=== PATIENT | female | born 1995 | race Caucasian/White ===

== ENCOUNTER 2016-10-27 20:53 | Inpatient (IN) | payer OTHER ==
[~2016-10-27] VITALS: Ht 162.6 cm; Wt 69.4 kg
[2016-10-27 22:07] LABS: BASO % 0.4 %; BASO ABS # 0.04 K/uL (0-0.2); COMPLETE YES; EOS % 3.2 %; HEMATOCRIT 43.4 % (37-47); IG% 0.1 %; LYMPH % 33.6 %; LYMPH ABS # 3.35 K/uL (1.2-3.4); MEAN CELL VOLUME 85.3 fL (80-100); MEAN CORPUSCULAR HGB CONC 36.4 g/dl (32-36); MEAN PLATELET VOLUME 11.4 fL (7.4-10.4); NEUT % 54.7 %; PLATELET COUNT 202 K/uL (130-400); RED BLOOD COUNT 5.09 M/uL (4.2-5.4); WHITE BLOOD COUNT 9.98 K/uL (4.8-10.8)
--- NOTE | 2016-10-27 22:08 | EMERGENCY ROOM VISIT NOTE ---
History Report prepared by Justin: Angélica Spicer Under the Supervision of: Dr. Pawan Rubio M.D. First contact with patient: 21:38 Chief Complaint: MENTAL HEALTH EVALUATION Stated Complaint: BEHAVIORAL HEALTH ISSUES History of Present Illness The patient is a 21 year old female who presents to the Emergency Room with complaints of worsening depression starting a few weeks TIER OVER. The patient states that she has a mental health history of depression and anxiety. The patient states that lately she has been feelings that she is diminished, does not exist and feeling of guilt. The patient states that recently she has experienced a lot of stressor. She states her grandmother in June and other stressors included politics, withdrawing from [facility] and financial troubles. The patient states that she use to take Effexor but due to side effects she stopped taking the medication about 1 year ago. The patient states she does not see anyone for her depression. She states that she does feel like she wants to hurt herself and has thoughts of suicide but states she has never attempted suicide in the past .The patient states that her thoughts of suicide also cause her to feel more guilty and stress. The patient states that she has been having night sweats. She states that she only eats about 1 meal a day and sleeps 5 hours a night. The patient denies any chance of and states she took a test last week due to her irregular menstrual periods. Source of History: patient Onset: few weeks TIER OVER Position: other (global) Timing: worsening Note: Associated symptoms: night sweats, anxiety. Review of Systems See HPI for pertinent positives & negatives. A total of 10 systems reviewed and were otherwise negative. Past Medical & Surgical Medical Problems: (1) Anxiety (2) Depression (3) Factor 5 Leiden mutation, heterozygous (4) Hypothyroidism Family History Cancer Heart disease Hypertension Social History Smoking Status: Never Smoker Marital Status: single Housing Status: lives with roommate Occupation Status: employed Current/Historical Medications No Active Prescriptions or Reported Meds Allergies Coded Allergies: Sulfa Antibiotics (Verified Allergy, Mild, Rash, 10/27/16) Physical Exam Vital Signs Date Time Temp Pulse Resp B/P Pulse Ox O2 Delivery O2 Flow Rate FiO2 10/28/16 00:35 78 16 120/90 98 10/27/16 20:59 36.9 139 18 152/92 99 Room Air Physical Exam GENERAL: Patient is a healthy-appearing well-nourished HEAD: Normocephalic atraumatic EYES: Ocular movements intact pupils equal and react to light OROPHARYNX mucous membranes are moist no exudates present no erythema or edema present NECK: Supple no nuchal rigidity CHEST: Good equal expansion LUNGS: Clear and equal to auscultation CARDIAC: Normal S1 and S2 ABDOMEN: Soft nontender no guarding BACK: No CVA tenderness EXTREMITIES: No pain upon palpation normal muscle strength in all groups no clubbing cyanosis or edema NEURO: Patient is following commands is answering questions appropriately. Alert and oriented x3 Cranial Nerves 2-12 grossly intact PSYCH: Medical Decision & Procedures Laboratory Results 10/27/16 21:56 Red Blood Count 5.09, Mean Corpuscular Volume 85.3, Mean Corpuscular Hemoglobin 31.0, Mean Corpuscular Hemoglobin Concent 36.4, Mean Platelet Volume 11.4, Neutrophils (%) (Auto) 54.7, Lymphocytes (%) (Auto) 33.6, Monocytes (%) (Auto) 8.0, Eosinophils (%) (Auto) 3.2, Basophils (%) (Auto) 0.4, Neutrophils # (Auto) 5.46, Lymphocytes # (Auto) 3.35, Monocytes # (Auto) 0.80, Eosinophils # (Auto) 0.32, Basophils # (Auto) 0.04 10/27/16 21:56 Test 10/27/16 21:30 10/27/16 21:56 Urine Color YELLOW Urine Appearance TURBID (CLEAR) Urine pH 7.5 (4.5-7.5) Urine Specific [place] 1.022 (1.000-1.030) Urine Protein NEG (NEG) Urine Glucose (UA) NEG (NEG) Urine Ketones NEG (NEG) Urine Occult Blood NEG (NEG) Urine Nitrite NEG (NEG) Urine Bilirubin NEG (NEG) Urine Urobilinogen NEG (NEG) Urine Leukocyte Esterase SMALL (NEG) Urine WBC (Auto) 10-30 /hpf (0-5) Urine RBC (Auto) 0-4 /hpf (0-4) Urine Hyaline Casts (Auto) 0 /lpf (0-5) Urine Epithelial Cells (Auto) >30 /lpf (0-5) Urine Bacteria (Auto) 4+ (NEG) Urine Pathogenic Casts /lpf (0) Urine Test NEG (NEG) Urine Opiates Screen NEG (NEG) Urine Methadone, Qualitative NEG (NEG) Urine Barbiturates NEG (NEG) Urine Phencyclidine (PCP) Level NEG (NEG) Ur Amphetamine/Methamphetamine NEG (NEG) MDMA (Ecstasy) Screen NEG (NEG) Urine Benzodiazepines Screen NEG (NEG) Urine Cocaine Metabolite NEG (NEG) Urine Marijuana (THC) POS (NEG) White Blood Count 9.98 K/uL (4.8-10.8) Red Blood Count 5.09 M/uL (4.2-5.4) Hemoglobin 15.8 g/dL (12.0-16.0) Hematocrit 43.4 % (37-47) Mean Corpuscular Volume 85.3 fL (80-100) Mean Corpuscular Hemoglobin 31.0 pg (25-34) Mean Corpuscular Hemoglobin Concent 36.4 g/dl (32-36) Platelet Count 202 K/uL (130-400) Mean Platelet Volume 11.4 fL (7.4-10.4) Neutrophils (%) (Auto) 54.7 % Lymphocytes (%) (Auto) 33.6 % Monocytes (%) (Auto) 8.0 % Eosinophils (%) (Auto) 3.2 % Basophils (%) (Auto) 0.4 % Neutrophils # (Auto) 5.46 K/uL (1.4-6.5) Lymphocytes # (Auto) 3.35 K/uL (1.2-3.4) Monocytes # (Auto) 0.80 K/uL (0.11-0.59) Eosinophils # (Auto) 0.32 K/uL (0-0.5) Basophils # (Auto) 0.04 K/uL (0-0.2) RDW Standard Deviation 40.5 fL (36.4-46.3) RDW Coefficient of Variation 12.8 % (11.5-14.5) Immature Granulocyte % (Auto) 0.1 % Immature Granulocyte # (Auto) 0.01 K/uL (0.00-0.02) Anion Gap 9.0 mmol/L (3-11) Est Creatinine Clear Calc Drug Dose 107.8 ml/min Estimated GFR () 124.0 Estimated GFR (Non- 107.0 BUN/Creatinine Ratio 12.9 (10-20) Calcium Level 9.2 mg/dl (8.5-10.1) Total Bilirubin 0.3 mg/dl (0.2-1) Direct Bilirubin < 0.1 mg/dl (0-0.2) Aspartate Amino Transf (AST/SGOT) 15 U/L (15-37) Alanine Aminotransferase (ALT/SGPT) 23 U/L (12-78) Alkaline Phosphatase 68 U/L (45-117) Total Protein 7.4 gm/dl (6.4-8.2) Albumin 4.0 gm/dl (3.4-5.0) Thyroid Stimulating Hormone (TSH) 9.800 uIu/ml (0.300-4.500) Ethyl Alcohol mg/dL < 3.0 mg/dl (0-3) Labs reviewed by ED physician. Medications Administered Medications (Trade) Dose Ordered Sig/Gaston Route Start Time Stop Time Status Last Admin Dose Admin Nitrofurantoin Macrocrystals (Macrobid Cap) 100 mg ONE STAT PO 10/27/16 22:35 10/27/16 22:36 DC 10/27/16 23:01 100 MG ED Course 2149: Past medical records reviewed. The patient was evaluated in room A7. A complete history and physical examination was performed. 2208: The patient has been medically clear for further mental health evaluation. 2225:The housing case manager informed me that he will contact [address] [place] [address] to come evaluate the patient. 2231: [facility] will be down to evaluate the patient. Medical Decision Differential diagnosis: Etiologies such as mood disorder, infection, hypoglycemia, electrolyte abnormalities, cardiac sources, intracerebral event, toxicologic, neurologic, as well as others were entertained. This is a 21-year-old female who presents emergency department complaining of depression that has been worsening over the past several months this is out of her grandmother. I will note that the patient's TSH is elevated however she can follow this up with her primary care physician. She was given Macrobid for what appears to be a UTI. She is not and admits to a history of irregular periods. I did discuss the case with case management as well as [facility] liaison who agreed to admit the patient. Patient was in agreement with the treatment plan. She was further evaluated and admitted to [facility]. Impression Primary Impression: Mood disorder Scribe Attestation The scribe's documentation has been prepared under my direction and personally reviewed by me in its entirety. I confirm that the note above accurately reflects all work, treatment, procedures, and medical decision making performed by me. Departure Information Dispostion Home / Self-Care Prescriptions No Active Prescriptions or Reported Meds Forms HOME CARE DOCUMENTATION FORM, IMPORTANT VISIT INFORMATION Patient Instructions [facility]
[2016-10-27 22:20] LABS: URINE APPEARANCE TURBID (CLEAR); URINE BILIRUBIN NEG (NEG); URINE COLOR YELLOW; URINE EPITHELIAL CELL AUTO >30 /lpf (0-5); URINE NITRITE NEG (NEG); URINE PH 7.5 (4.5-7.5); URINE SPECIFIC GRAVITY 1.022 (1.000-1.030); UROBILINOGEN NEG (NEG)
[2016-10-27 22:23] LABS: ALT/SGPT 23 U/L (12-78); BLOOD UREA NITROGEN 10 mg/dl (7-18); BUN/CREATININE RATIO 12.9 (10-20); CALCIUM 9.2 mg/dl (8.5-10.1); CARBON DIOXIDE 24 mmol/L (21-32); CHLORIDE 107 mmol/L (98-107); CREATININE 0.79 mg/dl (0.60-1.20); GLUCOSE 94 mg/dl (70-99); POTASSIUM 3.7 mmol/L (3.5-5.1); SODIUM 140 mmol/L (136-145)
[2016-10-27 22:23] LABS: MANUAL MICROSCOPIC REQUIRED? NO; REVIEW REQ? YES
[2016-10-27 22:24] LABS: BENZODIAZEPINE, URINE NEG (NEG); COCAINE,URINE NEG (NEG); PHENCYCLIDINE, URINE NEG (NEG)
[2016-10-27 22:33] LABS: ALKALINE PHOSPHATASE 68 U/L (45-117); AST/SGOT 15 U/L (15-37)
[2016-10-27 22:33] LABS: PREG INTERNAL NEGATIVE QC NEG CLEAR BACKGROUND; PREG INTERNAL POSITIVE QC POS CONTROL LINE
[2016-10-27] MEDS ORDERED: NITROFURANTOIN MONOHYDRATE 100 MG CAP PO STA (22:35)
[2016-10-28] MEDS ORDERED: ACETAMINOPHEN 325 MG TAB PO PRN (00:30)
[2016-10-28] MEDS ORDERED: BISMUTH SUBSALICYLATE PER ML OMNICELL CHARGE PO PRN (00:30)
[2016-10-28] MEDS ORDERED: SODIUM CHLORIDE 0.65% NA SOLN 45 ML (OCEAN) PRN (00:30)
[2016-10-28] MEDS ORDERED: MAGNESIUM HYDROXIDE SUSP 30 ML UDC PO PRN (00:30)
[2016-10-28] MEDS ORDERED: ALUMINUM/MAGNESIUM SUSP 30 ML UDC PO PRN (00:30)
[2016-10-28] MEDS ORDERED: hydrOXYzine HCL 25 MG TAB PO PRN ×2 (00:30)
[2016-10-28] MEDS ORDERED: NURSING VERBAL MED ORDER ONE (00:30)
[2016-10-28 00:35] VITALS: O2SAT 98
[2016-10-28 00:53] VITALS: BP 120/90; PULSE 84; TEMP 36.9; Ht 162.6 cm; Wt 69.4 kg
[2016-10-28 06:53] VITALS: BP_SYST 121; BP_SYST 138; BP_DIAS 78; BP_DIAS 82; PULSE 76; PULSE 85; TEMP 36.3
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
[2016-10-28] MEDS: ESCITALOPRAM OXALATE 10 MG TAB PO SCH (21:22)
[2016-10-29 06:21] VITALS: BP_SYST 119; BP_SYST 135; BP_DIAS 106; BP_DIAS 87; PULSE 106; PULSE 72; TEMP 36.9
--- NOTE | 2016-10-29 11:35 | Psychiatric Progress Notes ---
Progress Note Date of Service Oct 29, 2016. Interval History Anamaria Samuel is a 21-year-old female who currently lives in [place] alone, has a history of depression and hypothyroidism, neither of which are currently treated, and presented to the emergency room with worsening mood and suicidality. She was admitted voluntarily. Chief Complaint "Okay, just sleep". Subjective Patient was seen & assessed interval progress reviewed with nursing. Staff report she is going to groups and participating appropriately. She had a meeting with her boyfriend yesterday, who was supportive and worried about her. She agreed that she tends to put up barriers and hide how she is feeling, and becomes overwhelmed. She discussed difficulties in her relationships with her family, and the fact that she and her boyfriend have to hide the relationship from his family. She was referred for outpatient therapy and has an appointment next week. Today, she states mood is "a bit better, but sleep wasn't so good," noting her roommate was disruptive, so she had to go to the quiet room. She feels groups and therapy have been helpful. She submitted her 72 hour notice as she wants to be able to leave in a few days as she is anxious to be back at work next week, and hopes to be ready for discharge by Wednesday. She denies SI today, and is working on coping skills and discharge safety plan. She doesn't want a family meeting as her family are in [place] now, and won't be back for another month, but thinks she would like to set up some sort of session with them and her outpatient therapist once they return. She denies suicidal thoughts today, and feels safe in the hospital. She questions why she did not get her thyroid medication this morning, as it is ordered but was not given. Sleep Information Total Hours of Sleep: 6.25 Meal Information Percent of Breakfast Consumed: 100 Percent of Lunch Consumed: 50 Percent of Dinner Consumed: 100 Mental Status Exam During interview pt is: alert and oriented, cooperative Appearance: appropriately dressed, appropriately groomed Eye contact is: good Motor behavior is: steady gait & station, no abnormal motor movements Speech: other (rapid) Affect: mood congruent, other (mildly anxious, but reactive, appropriate, and mood congruent.) Mood is: other ("better") Thought process: goal directed, linear, logical Thought content: reality based without delusions Suicidal thought are: denied Homicidal thoughts are: denied Hallucinations: denies auditory, denies visual Cognition: memory grossly intact, attention grossly intact, language grossly intact Intelligence estimated to be: consistent with level of education Insight: fair Judgement: fair Impression 21-year-old single female with a history of depression treated by her PCP who presents with worsening mood and suicidality in the context of multiple psychosocial stressors. She reports affective instability with multiple symptoms consistent with borderline personality disorder versus bipolar type II , as well as symptoms of generalized anxiety disorder, and regular cannabis use. She has never had psychiatric treatment in the past, and has had only one previous trial of Effexor for about 2 years. She is willing for medications to target mood and anxiety and for referrals for outpatient follow-up. Plan (1) Depression Differential diagnosis includes major depressive disorder versus borderline personality disorder versus bipolar type II. She was on Effexor for 2 years and did not have manic episodes during that time, and her reports of affect of instability sound more consistent with borderline personality disorder then with bipolar disorder. We will start treating her as a unipolar depression with an SSRI antidepressant, but we did review the risks of destabilizing mood or causing yvonne with an antidepressant. We reviewed the risks, benefits, and side effects of escitalopram, and will start 10 mg daily at bedtime tonight. -Attend groups and work on healthy coping skills and a discharge safety plan. -Family meeting with mother and/or other supports. -Refer for outpatient psychiatry and therapy. 10/29 -Referred to [facility], but initial appointment is not until 12/29/2016. She is on a wait list. Social work looking into other options, as she will need to be seen sooner than that after discharge from the hospital. -Referred for therapy to Gloria Gomez, and will see her 11/04/2016. (2) Generalized anxiety disorder Start escitalopram as above. Offer hydroxyzine as needed. (3) Borderline Personality Traits The patient endorses affect of instability, chronic feelings of emptiness, fears of abandonment, impulsivity, history of self-mutilation and chronic suicidality, stress-related dissociation, and difficulty controlling anger. Continue to monitor and assess, and refer for outpatient therapy. (4) Cannabis abuse The patient was educated about the risks of ongoing cannabis use, including worsening of mood, amotivation, legal problems, and potential interactions with psychotropic medications. We reviewed the recommendations to abstain from illicit substance use while addressing depression and anxiety, and she indicated a willingness to consider this. Will refer for outpatient follow-up with a psychiatrist and therapist to address mental health issues as well as substance abuse. (5) Hypothyroidism TSH high at 9.800. Was on levothyroxine 100mcg, but went off it 1.5 yrs ago as couldn't afford medication. Will resume here, and will need f/u with PCP after discharge. (6) Factor 5 Leiden mutation, heterozygous Discharge / Aftercare Planning Primary Care Physician: Name: PCP, Sabrina Linder Psychiatrist: Name: Elvi Webb PA-C, [place] Date of Appointment: Dec 29, 2016 Time of Appointment: 8:30am Appointment Notes: you are on cancellation list for earlier appt Therapist: Name: Gloria Gomez LCSW, [facility], [address] Date of Appointment: Nov 04, 2016 Time of Appointment: 9am Visit Code E&M Code: 81768 Inventory Assets Strengths: Employed, motivated for treatment Risk Factors Assessment : Yes /single/: Yes Higher / Fall in social status: No Health problems: Yes Mental Health Diagnoses: Yes Substance use disorders: Yes Previous attempt: Yes Family history of suicide: No Previous psychiatric stay: No Hopelessness: No Smoker: No Protective Factors Assessment Spiritism beliefs: No : No Responsible for young children: No Employed: Yes Stable relationships: No Supportive family: No Good rapport with provider: No Data Vital Signs Last 24 Hrs: Date Time Temp Pulse Resp B/P Pulse Ox O2 Delivery O2 Flow Rate FiO2 10/29/16 06:21 36.9 72 16 135/106 106 119/87 Meds Administered Last 24 Hrs: Meds Administered (Past 24Hrs) Medications (Trade) Dose Ordered Sig/Gaston Route Start Time Stop Time Status Last Admin Dose Admin Nitrofurantoin Macrocrystals (Macrobid Cap) 100 mg ONE STAT PO 10/27/16 22:35 10/27/16 22:36 DC 10/27/16 23:01 100 MG Escitalopram Oxalate (Lexapro Tab) 10 mg HS PO 10/28/16 22:00 11/27/16 21:59 10/28/16 21:22 10 MG Problem Qualifiers (1) Depression: Depression Type: major depressive disorder Major depression recurrence: recurrent Active/Remission status: currently active Major depression episode severity: severe Psychotic features: without psychotic features Qualified Codes: F33.2 - Major depressive disorder, recurrent severe without psychotic features
[2016-10-29] MEDS: ESCITALOPRAM OXALATE 10 MG TAB PO SCH (21:23)
[2016-10-30 06:30] VITALS: BP_SYST 139; BP_SYST 144; BP_DIAS 108; BP_DIAS 87; PULSE 77; PULSE 92; TEMP 36.9
[2016-10-30] MEDS: LEVOTHYROXINE 100 MCG TAB PO SCH ×2 (08:00→08:30)
[2016-10-30] MEDS ORDERED: SYN100 PO (10:52)
[2016-10-30] MEDS ORDERED: LXP10 PO (10:52)
--- NOTE | 2016-10-30 11:15 | Discharge Instructions ---
Discharge Information Report Includes Report will include the: Discharge Instructions & Summary Admission Admission Date / Time: Oct 28, 2016 at 00:21 Reason for Admission: Major Depression W/ Suicidality Discharge Discharge Diagnosis / Problem: Depression and anxiety Condition at Discharge: Good Discharge Goals Goal(s): Decrease discomfort, Improve disease control, Prevent Disease Progression Activity Recommendations Activity Limitations: resume your previous activity (Return to work on Wednesday) Item Value Date Time Thyroid Stimulating Hormone (TSH) 9.800 uIu/ml H 10/27/16 2156 . Instructions / Follow-Up Instructions / Follow-Up . SPECIAL CARE INSTRUCTIONS: 1. Follow through with your scheduled aftercare appointments. If unable to keep an appointment, please call to reschedule. 2. Take your medication only as prescribed. Medication should not be changed or stopped without the approval of your doctor. In the event of worsening symptoms or concerns about side effects, contact your doctor immediately. 3. Utilize new healthy coping skills, anger management skills, and stress management skills learned during your hospitalization. Journal feelings and process them with a support person. Identify stressors or situations that may result in relapse, deterioration or inappropriate behaviors and develop a plan to deal with those issues. 4. If your coping skills are ineffective and you are in crisis, contact your outpatient providers for direction. If unable to reach your providers, please call the CAN HELP LINE AT or go to the closest Emergency Room. 5. Avoid alcohol and un-prescribed drugs. 6. You have been provided with the Mental Health Advance Directives Pamphlet for your review. AFTERCARE APPOINTMENTS: * Please call your insurance company prior to your scheduled appointment to confirm your aftercare providers are covered. Take your insurance information to your appointments. . Discharge / Aftercare Planning Primary Care Physician: Name: PCP, Sabrina Sheehan Phone Number: [phone] Date of Appointment: December 02, 2016 Time of Appointment: 1020am Psychiatrist: Name: Dr Merida Date of Appointment: Nov 09, 2016 Time of Appointment: 3:00pm Appointment Notes: [address] [facility],[address] Therapist: Name Of Therapist: Gloria Gomez LCSW, [facility], [address] [place] [address] Radha Date of Appointment: Nov 04, 2016 Time of Appointment: 9am . Follow-Up Care Plan for Follow-Up Care: The patient will see both a therapist and psychiatrist within 10 days of discharge. Current Hospital Diet Patient's current hospital diet: Regular Diet Discharge Diet Recommended Diet: Regular Diet Procedures Procedures Performed: No Pending Studies Pending Studies at Discharge: No Medical Emergencies . Who to Call and When: Medical Emergencies: For questions or emergencies related to your hospital stay, please contact the Inpatient Behavioral Health Unit at [phone]. A tree expert is on-call 08/02 for the Behavioral Health Unit for emergencies At any time you feel your situation is an emergency, you may also call 911 immediately. . Non-Emergent Contact Non-Emergency issues call your: Psychiatrist, Therapist Advance Directives Existing Advance Directive: No Do You Have an Existing Mental: No Existing Living Will: No Existing Power of Student Services Director: No Advance Directives Info Given: To Pt/S.O. Advance Directives Reason: Declines as Mental Health Visit. Discharge Summary Admission HPI Per the Admitting provider: Pt states she has had worsening mood for over a year, in the context of her grandmother dying and relationship issues with family. She is from [place], [place], but had been living with her aunt and uncle in [place] (her "guardians," as she and her brother had severe fighting, so her aunt and uncle took legal guardianship of her so she could live with them, while her brother stayed with her mother). She lived with them from 7th grade through high school graduation, then came here to attend [employer]. She returned home the summer after her first year of college, and threw a democrat while her aunt and uncle were out of town, so they kicked her out. She returned to [employer] in the fall for her sophomore year, but had to withdrawal during her isiah year as she had poor grades and couldn' t afford tuition. She is now living in an apartment and is working to support herself. She says her "stress" is "causing me problems in getting back to work, haven't been able to get up and go to work in the mornings," and hasn't made it to work all 5 days in a week. 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 She has not been able to attend a full week of work since starting that job, and made an appointment with her PCP as she thought she needed her PCP to refer her to the hospital. She says "everything has been boiling in the back of my mind, and was thinking about suicide, so decided I needed to get this fixed." She reports years of suicidal thoughts, and has thought about different ways to kill herself , and thinks the best way would be to "take a handful of pills." She has gone to far as to write suicide notes last week, but decided she wanted to get help instead of acting on it. Mood is "a lot of up and down," and has days where she is "very very happy, have everything together, am doing everything right, then the next day can't get out of bed, just blank, can't do it anymore." Periods of low mood last a day to a week, during which sleep is disrupted (night sweats) and decreased to 5 hrs/night, feelings of guilt, decreased interest, and isolating more. She denies changes in appetite or weight, crying spells. Periods of elevated mood occur erratically, approximately every 2 weeks, usually last hours to 3 days, and during them is more productive, feels "real, alive, glowing," and energy improves. She will smoke more pot because "I feel so good," and will spend excessively, up to $500 in a week which is her whole paycheck. Denies racing thoughts, decreased need for sleep. She has read about borderline PD and thinks it fits her well, that she vacillates in her feelings about friends and loved ones, "goes from loving them to angry," endorses black and white thinking, chronic feelings of emptiness, fear of rejection, chronic SI , anger outbursts, and stress induced dissociation. Used to scratch herself and dig deep into skin, but denies cutting and burning. Anger outbursts once every 2 weeks, will break coat hangers up to get anger out, but denies breaking other objects or violence. Reports anxiety which has increased over the past two years , triggered by financial strain, worries as she can't make ends meet and feels she is not living up to her potential or getting anywhere in life. She has had panic with "complete breakdown, feel like I can't breathe, my mind stops, as if I'm frozen," heart races; lasting 5 min, occurs 4-5 times/year. Denies AVH, paranoia, OCD, and eating disorder. Hospital Course (1) Depression Differential diagnosis includes major depressive disorder versus borderline personality disorder versus bipolar type II. She was on Effexor for 2 years and did not have manic episodes during that time, and her reports of affect of instability sound more consistent with borderline personality disorder then with bipolar disorder. We will start treating her as a unipolar depression with an SSRI antidepressant, but we did review the risks of destabilizing mood or causing yvonne with an antidepressant. We reviewed the risks, benefits, and side effects of escitalopram, and will start 10 mg daily at bedtime tonight. -Attend groups and work on healthy coping skills and a discharge safety plan. -Family meeting with mother and/or other supports. -Refer for outpatient psychiatry and therapy. 10/29 -Referred to [facility], but initial appointment is not until 12/29/2016. She is on a wait list. Social work looking into other options, as she will need to be seen sooner than that after discharge from the hospital. -Referred for therapy to Gloria Gomez, and will see her 11/04/2016. (2) Generalized anxiety disorder Start escitalopram as above. Offer hydroxyzine as needed. (3) Borderline Personality Traits The patient endorses affect of instability, chronic feelings of emptiness, fears of abandonment, impulsivity, history of self-mutilation and chronic suicidality, stress-related dissociation, and difficulty controlling anger. Continue to monitor and assess, and refer for outpatient therapy. (4) Cannabis abuse The patient was educated about the risks of ongoing cannabis use, including worsening of mood, amotivation, legal problems, and potential interactions with psychotropic medications. We reviewed the recommendations to abstain from illicit substance use while addressing depression and anxiety, and she indicated a willingness to consider this. Will refer for outpatient follow-up with a psychiatrist and therapist to address mental health issues as well as substance abuse. (5) Hypothyroidism TSH high at 9.800. Was on levothyroxine 100mcg, but went off it 1.5 yrs ago as couldn't afford medication. Will resume here, and will need f/u with PCP after discharge. (6) Factor 5 Leiden mutation, heterozygous Risk Factors Assessment : Yes /single/: Yes Higher / Fall in social status: No Health problems: Yes Mental Health Diagnoses: Yes Substance use disorders: Yes Previous attempt: Yes Family history of suicide: No Previous psychiatric stay: No Hopelessness: No Smoker: No Protective Factors Assessment Presybeterian beliefs: No : No Responsible for young children: No Employed: Yes Stable relationships: No Supportive family: No Good rapport with provider: No Day of Discharge Assessment COURSE OF HOSPITALIZATION: During the patient's brief 2 day stay, she was stabilized on Lexapro 10 mg daily. She had no further suicidal thinking during her stay and was anxious to be discharged. She did submit her 72 hour notice to withdraw from treatment, and she was deemed not to need involuntary treatment. Therefore she will be discharged today. She will have a prompt follow-up with a new outpatient psychiatric provider and a therapist. TSH was elevated at 9.8 upon admission because the patient has not been taking her thyroid medicine. She would be provided a two-week supply of her thyroid medicines with specific instructions to follow-up with her PCP for ongoing refills. DAY OF DISCHARGE ASSESSMENT: Today the patient is requesting discharge. She says that she feels good, without suicidal thinking. She notes disturbed sleep. In the hospital and is anxious to be able to get home where she will sleep better. She is optimistic for the future, willing for psychiatric aftercare. Today she is casually and appropriately dressed and groomed. Gait and station are within normal limits. Eye contact is good. Affect is smiling. Speech is of normal rate volume and tone. Thoughts are organized, goal- directed, and without evidence of thought disorder. Recent and remote memory are intact per conversation. Intelligence is estimated to be average. Insight and judgment are improved over admission. Laboratory Test 10/27/16 21:30 10/27/16 21:56 Urine Color YELLOW Urine Appearance TURBID Urine pH 7.5 Urine Specific [place] 1.022 Urine Protein NEG Urine Glucose (UA) NEG Urine Ketones NEG Urine Occult Blood NEG Urine Nitrite NEG Urine Bilirubin NEG Urine Urobilinogen NEG Urine Leukocyte Esterase SMALL Urine WBC (Auto) 10-30 Urine RBC (Auto) 0-4 Urine Hyaline Casts (Auto) 0 Urine Epithelial Cells (Auto) >30 Urine Bacteria (Auto) 4+ Urine Pathogenic Casts Urine Test NEG Urine Opiates Screen NEG Urine Methadone, Qualitative NEG Urine Barbiturates NEG Urine Phencyclidine (PCP) Level NEG Ur Amphetamine/Methamphetamine NEG MDMA (Ecstasy) Screen NEG Urine Benzodiazepines Screen NEG Urine Cocaine Metabolite NEG Urine Marijuana (THC) POS Urine Marijuana (THC Carboxy Acid) Pending White Blood Count 9.98 Red Blood Count 5.09 Hemoglobin 15.8 Hematocrit 43.4 Mean Corpuscular Volume 85.3 Mean Corpuscular Hemoglobin 31.0 Mean Corpuscular Hemoglobin Concent 36.4 Platelet Count 202 Mean Platelet Volume 11.4 Neutrophils (%) (Auto) 54.7 Lymphocytes (%) (Auto) 33.6 Monocytes (%) (Auto) 8.0 Eosinophils (%) (Auto) 3.2 Basophils (%) (Auto) 0.4 Neutrophils # (Auto) 5.46 Lymphocytes # (Auto) 3.35 Monocytes # (Auto) 0.80 Eosinophils # (Auto) 0.32 Basophils # (Auto) 0.04 RDW Standard Deviation 40.5 RDW Coefficient of Variation 12.8 Immature Granulocyte % (Auto) 0.1 Immature Granulocyte # (Auto) 0.01 Sodium Level 140 Potassium Level 3.7 Chloride Level 107 Carbon Dioxide Level 24 Anion Gap 9.0 Blood Urea Nitrogen 10 Creatinine 0.79 Est Creatinine Clear Calc Drug Dose 107.8 Estimated GFR () 124.0 Estimated GFR (Non- 107.0 BUN/Creatinine Ratio 12.9 Random Glucose 94 Calcium Level 9.2 Total Bilirubin 0.3 Direct Bilirubin < 0.1 Aspartate Amino Transferase (AST) 15 Alanine Aminotransferase (ALT) 23 Alkaline Phosphatase 68 Total Protein 7.4 Albumin 4.0 Thyroid Stimulating Hormone (TSH) 9.800 Ethyl Alcohol mg/dL < 3.0 Total Time Total Time Spent (min): Greater than 30 minutes Total Time Included: examination of the patient, discharge planning, medication reconciliation, communication with other providers Tobacco Cessation at Discharge Smoking Status: Never Smoker FDA approved Prescription: non-smoker Problem Qualifiers (1) Depression: Depression Type: major depressive disorder Major depression recurrence: recurrent Active/Remission status: currently active Major depression episode severity: severe Psychotic features: without psychotic features Qualified Codes: F33.2 - Major depressive disorder, recurrent severe without psychotic features
== END 2016-10-30 11:50 | disposition home or self-care (01) | DRG 885 ==
LOC: C.EDB 20:55 → C.MHU 10-28 00:21
PROVIDERS: ADMIT Psychiatry & Neurology Psychiatry; ATTEND Psychiatry & Neurology Psychiatry
DX: F33.2 Major depressive disorder, recurrent severe without psychotic features (principal); D68.51 Activated protein C resistance; R45.851 Suicidal ideations; E03.9 Hypothyroidism, unspecified; Z88.2 Allergy status to sulfonamides; Z80.9 Family history of malignant neoplasm, unspecified; Z82.49 Family history of ischemic heart disease and other diseases of the circulatory system; Z81.1 Family history of alcohol abuse and dependence; Z81.8 Family history of other mental and behavioral disorders; Z81.4 Family history of other substance abuse and dependence; F41.1 Generalized anxiety disorder; F60.3 Borderline personality disorder; F12.10 Cannabis abuse, uncomplicated